=== PATIENT | male | born 1955 | race Two or more races ===

== ENCOUNTER 2018-04-26 21:03 | Inpatient (IN) | payer MEDICARE ==
[~2018-04-26] VITALS: Ht 170.2 cm; Wt 90.0 kg
[~2018-04-26 21:03] MED LIST: ACETAMINOPHEN325 MG PO; APAP325 MG PO; CHRONULAC30 ML; HYDROCODON-ACE1 EAC7 PO; IBUPROFEN400 MG PO; LOPRESSOR25 MG PO; LOVAZA1 G; NEPHRO-VITE RX1 TAB PO; NEURONTIN 300300 MG PO; NORCO 10/325 TA1 TA1 PO; NORCO 5/325 TAB1 TA1 PO; POTASSIUM99 M1 PO; RENVELA800 MG PO; RESTORIL15 MG PO; [UNRECOGNIZED DRUG - OTHER]
[2018-04-26 21:43] LABS: BASOPHILS 0.5 % (0-2); EOSINOPHILS 0.9 % (0-7); HEMATOCRIT 48.5 % (42.0-54.0); HEMOGLOBIN 15.9 g/dL (13.5-17.5); IMMATURE GRANULOCYTES 0.2 % (0-5); LYMPHOCYTES 31.7 % (15-50); MCH 30.2 pg (26.0-34.0); MCHC 32.8 g/dL (31.0-37.0); MCV 92.2 fL (80.0-100.0); MEAN PLATELET VOLUME 10.5 fL (7.4-10.4); MONOCYTES 11.8 % (2-11); NEUTROPHILS 54.9 % (40-80); PLATELET COUNT 161 10x3/uL (130-400); RBC 5.26 10x6/uL (4.20-6.10); RDW 15.4 % (11.5-14.5); WBC 5.6 10x3/uL (4.8-10.8)
[2018-04-26 21:49] VITALS: BP 133/75
[2018-04-26 21:54] LABS: APTT 31.4 SECONDS (22.8-39.4); INR 0.99 (0.85-1.17); PROTIME 12.7 SECONDS (11.6-15.0)
[2018-04-26 21:56] LABS: D-DIMER-QUANTITATIVE 0.98 ug/mLFEU (0.20-0.54)
[2018-04-26 22:08] LABS: CALC OSMOLALITY 298 mosm/kg (275-300); CALCIUM 9.7 mg/dL (8.5-10.1); CHLORIDE - SERUM 100 mmol/L (98-107); CKMB 6.7 U/L (0.0-3.6); CREATINE KINASE 207 UL (21-232); GLUCOSE 106 mg/dL (74-106); POTASSIUM - SERUM 5.3 mmol/L (3.5-5.1); SODIUM 140 mmol/L (136-145); TROPONIN-I < 0.017 ng/mL (0.000-0.060); UREA NITROGEN 69 mg/dL (7-18); eGFR NON AFRICAN AMERICAN 3 mL/min (90-120)
[2018-04-26 22:30] VITALS: BP 122/65
[2018-04-27 00:39] VITALS: BP 139/69
[2018-04-27 01:47] VITALS: BP 108/56; Ht 170.2 cm; Wt 90.0 kg
[2018-04-27 05:20] VITALS: BP 159/52
[2018-04-27 08:51] VITALS: BP 185/71
== END 2018-04-27 12:37 | disposition left against medical advice (07) | DRG 684 ==
LOC: D.ER 21:03 → D.M2 23:03
PROVIDERS: Family Medicine
DX: N17.9 Acute kidney failure, unspecified (principal); R30.0 Dysuria; I44.0 Atrioventricular block, first degree; Z72.0 Tobacco use; N18.6 End stage renal disease